=== PATIENT | male | born 1975 | race Caucasian/White ===

== ENCOUNTER 2017-06-13 09:52 | Emergency (ER) | payer MEDICAID ==
[~2017-06-13] VITALS: Wt 78.5 kg
[~2017-06-13 09:52] MED LIST: IBUP-1542 PO
--- NOTE | 2017-06-13 12:50 | ERD ---
ER Documentation Chief Complaint Date/Time DATE: 06/13/17 TIME: 12:46 Chief Complaint l. knee pain s/p trauma a few months ago HPI Patient is a 41-year-old male who presents with gradual onset, intermittent, mild to moderate left knee pain for 3 months. He states that it has been worse for the last month. 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 He states that he thinks he may have twisted it at work several months ago. He denies any direct trauma or fall. He denies swelling or pain with ranging of the knee. He denies swelling of the lower extremity, numbness, weakness. ROS All systems reviewed and are negative except as per history of present illness. Medications Home Meds Active Scripts Ibuprofen* (Motrin*) 600 Mg Tab, 600 MG PO Q8, #24 TAB Prov:JAX CARRIZALES MD 06/13/17 Ibuprofen* (Motrin*) 600 Mg Tab, 600 MG PO Q6H Y for PAIN AND OR ELEVATED TEMP, #30 Prov:ELENA WU NP 07/03/15 Allergies Allergies: Coded Allergies: No Known Allergy (Unverified , 07/03/15) PMhx/Soc Past medical history: None Past surgical history: None Social history: Denies tobacco, alcohol or illicit drugs Hx Alcohol Use: No Hx Substance Use: No Hx Tobacco Use: No FmHx Family History: No coronary disease, No diabetes Physical Exam Vitals Vital Signs Date Time Temp Pulse Resp B/P Pulse Ox O2 Delivery O2 Flow Rate FiO2 06/13/17 14:54 97.8 67 20 110/67 99 Room Air 06/13/17 09:54 97.8 83 20 111/68 99 Physical Exam Const: Alert, no acute distress Head: Atraumatic Eyes: Normal Conjunctiva ENT: Normal External Ears, Nose and Mouth. Resp: Clear to auscultation bilaterally Cardio: Regular rate and rhythm, no murmurs Abd: Soft, non tender, non distended. Skin: No petechiae or rashes Ext: No cyanosis, or edema. No bony point tenderness. No joint effusion. No ligamentous laxity. Extensor mechanism intact. Negative Lashon. 2+ DP pulse. Neur: Awake and alert, Strength and sensation full in 4 extremities. Psych: Normal Mood and Affect Results 24 hrs Current Medications Medications (Trade) Dose Ordered Sig/Tamiko Route PRN Reason Start Time Stop Time Status Last Admin Dose Admin Ibuprofen (Motrin) 600 mg ONCE ONCE PO 06/13/17 13:00 06/13/17 13:01 DC 06/13/17 12:58 Procedures/MDM MDM: Patient is a 41-year-old male with 3 months of left knee pain. He cannot identify an acute injury. He has a relatively benign exam. X-ray is unremarkable. I suspect internal derangement of the knee such as arthrosis or meniscal injury. There is no sign of septic joint, no sign of DVT, no sign of Blank's cyst. Patient was given an Paulo wrap and a prescription for Motrin. He was advised to apply ice and to follow-up with a PMD for referral to orthopedics. Departure Diagnosis: Primary Impression: Knee pain Chronicity: chronic Laterality: left Qualified Code: M25.562 - Chronic pain of left knee Condition: Stable JAX CARRIZALES MD Jun 13, 2017 12:50
[2017-06-13] MEDS ORDERED: IBUPROFEN 600 MG TAB PO ONE (13:00)
--- NOTE | 2017-06-13 14:07 | RADRPT ---
PROCEDURE: XR Knee. CLINICAL INDICATION: Knee pain TECHNIQUE: Three views of the left knee are available for review. COMPARISON: None available FINDINGS: The medial and lateral femorotibial compartments are preserved, as is the patellofemoral compartment . There is no acute osseous abnormality, marginal erosion or evidence of fracture. A joint effusion is not seen. IMPRESSION: 1. Unremarkable left knee x-ray series. 2. No acute fracture or dislocation is seen. RPTAT: [facility]U .Rodriguez Duenas MD, MD Date Time Electronically viewed and signed by .Rodriguez Duenas MD, MD on 06/13/2017 14:06 .d/
[2017-06-13] MEDS ORDERED: IBUP-1542 PO (14:33)
[2017-06-13 14:54] VITALS: BP 110/67; PULSE 67; RESP 20; TEMP 97.8
== END 2017-06-13 14:55 | disposition home or self-care (01) ==
LOC: FTE 09:52
DX: M25.562 Pain in left knee (principal)
CPT/HCPCS: 73562; Z7502; Z7610